=== PATIENT | male | born 1970 | race African-American/Black ===

== ENCOUNTER → 2021-12-16 | Day surgery (SDC) | payer OTHER ==
[~2021-12-16] VITALS: Ht 177.8 cm; Wt 99.8 kg
[~2021-12-16] MED LIST: AMLODIPINE BESY10 MG PO; BENICAR40 MG PO; CRESTOR40 M1 PO; HCTZ25 MG PO; METFORMIN HCL1000 M1 PO; VITAMIN D3 PO
[2021-12-16 06:29] LABS: HCT 38.4 % (42.0-52.0); HGB 12.6 g/dl (13.2-18.0); MCH 27.1 pg (25.0-31.0); MCHC 32.8 g/dL (32.0-36.0); MCV 82.6 fL (78.0-100.0); RBC 4.65 M/uL (4.70-6.00); RDW 13.7 % (11.5-14.0); WBC 6.1 K/uL (4.0-10.5)
[2021-12-16 06:47] LABS: ALBUMIN 3.8 g/dL (3.4-5.0); BILIRUBIN - TOTAL 0.1 mg/dL (0.2-1.0); BUN/CREAT RATIO (CALC) 14.4 RATIO; CREATININE 0.9 mg/dL (0.67-1.17); GLOBULIN (CALCULATION) 3.2 g/dL; POTASSIUM 3.8 mmol/L (3.5-5.1)
== END | disposition home or self-care (01) ==
LOC: FAS 05:43
PROVIDERS: Orthopaedic Surgery
DX: M75.112 Incomplete rotator cuff tear or rupture of left shoulder, not specified as traumatic (principal); M75.42 Impingement syndrome of left shoulder; M77.8 Other enthesopathies, not elsewhere classified
CPT/HCPCS: 36415; 71045; 80053; 93005; C1713; J0171; J0690; J1100; J1885; J2250; J2405; J2704; J2795; J3010; J7120